=== PATIENT | male | born 1945 | race Caucasian/White ===

== ENCOUNTER 2021-08-30 10:57 | Observation (INO) | payer SELFPAY ==
[2021-08-30] VITALS (7 sets, daily range): BP systolic 140–173; BP diastolic 67–86; PULSE 59–61; RESP 16–19; TEMP 36.3–36.8; O2SAT 87–96; BMI 45.6
--- NOTE | 2021-08-30 11:21 | CT_ITS ---
WS: [id number] CT HEAD TECHNIQUE: Noncontrast CT of the head obtained from the skullbase to the vertex. CLINICAL INFORMATION: fall COMPARISON: None. DLP: 1076.[address] scans at [facility] use at least one of these dose optimization techniques: automated e xposure control; mA and/or kV adjustment per patient size (includes targeted exams where dose is matc hed to clinical indication); or iterative reconstruction. FINDINGS: No evidence of intracranial hemorrhage or mass effect. Ventricular system and basal cisterns are gallego nt. Moderate small vessel changes with moderate parenchymal volume loss. 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 Chronic lacunar infarcts in the thalamus and basal ganglia. Ch ronic infarcts in the cerebellum. Intracranial vascular calcification. No extra-axial fluid collectio ns. No evidence of mass or mass effect. Paranasal sinuses and mastoid air cells are well aerated. .Normal visualized soft tissues. CT/CT head wo con* [id number] IMPRESSION: 1. No evidence of intracranial hemorrhage or mass effect. 2. Moderate small vessel changes with moderate parenchymal volume loss. 3. Chronic lacunar infarcts in the basal ganglia and cerebellum. 4. 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 5. No acute intracranial findings.
--- NOTE | 2021-08-30 11:21 | CT_ITS ---
WS: [id number] CT LUMBAR SPINE TECHNIQUE: Noncontrast CT of the lumbar spine with coronal and sagittal reformatted images. CLINICAL INFORMATION: fall COMPARISON: None. DLP: 4442.[address] scans at [facility] use at least one of these dose optimization techniques: automated e xposure control; mA and/or kV adjustment per patient size (includes targeted exams where dose is matc hed to clinical indication); or iterative reconstruction. FINDINGS: Mild lumbar curve. Moderate to advanced spondylitic changes lumbar spine. No acute compression fractu res. Slight anterolisthesis L4 on L5. No acute fractures. Ankylosis and hypertrophic changes sacroili ac joints. L1-L2: Mild facet arthropathy. Spinal canal and foramen are patent. L2-L3: Disc osteophyte complex with endplate ridging. Slight effacement of ventral thecal sac. Mild l eft and no significant right foraminal narrowing. L3-L4: Mild disc bulging with osteophytic ridging. Mild central canal stenosis. Advanced facet arthro viktoriya. Mild left foraminal narrowing. L4-L5: Grade 1 anterolisthesis L4 on L5. Moderate central canal stenosis. Advanced facet arthropathy. Mild bilateral foraminal narrowing right greater than left. L5-S1: Mild disc osteophytic ridging. Spinal canal is patent. Advanced facet arthropathy. Mild bilate ral foraminal narrowing. Adrenal glands are normal. CT/CT lumbar spine wo con* [id number] IMPRESSION: 1. Mild lumbar curve. Moderate to advanced spondylitic changes lumbar spine. 2. Moderate central canal stenosis L4-5. 3. Advanced facet arthropathy L4-L5 and L5-S1. 4. No acute fractures.
--- NOTE | 2021-08-30 11:21 | XR_ITS ---
WS: [id number] Exam: XR chest 1V portable [id number] Date/Time of Exam: 08/30/2021 11:40 AM Reason For Exam: dyspnea No priors. The lungs are fully expanded and clear. Heart size is top limits normal. The mediastinum is not widen ed. Advanced degenerative changes of both shoulders. Old right clavicle fracture. No pleural effusion s. XR/XR chest 1V portable [id number] IMPRESSION: 1. No acute cardiopulmonary finding.
--- NOTE | 2021-08-30 11:25 | W.ED.GENADLT ---
HPI - General Adult General: Chief complaint: Fall Stated complaint: MULTIPLE FALLS Time Seen by Provider: 08/30/21 11:04 History of Present Illness: HPI narrative: Patient is a 76-year-old male who was recently diagnosed with pneumonia yesterday presents the emergency room after multiple episodes of fall this morning. Patient slipped and fell earlier today and hit his head. Patient cannot remember if he passed out. Patient called EMS and was brought to the emergency room. On arrival, patient complains of headache and lower back pain. Patient says that he has been coughing since yesterday. Patient is unclear what antibiotics he has been started on after was diagnosed with a pneumonia. Patient denies any chest pain, palpitation, abdominal pain, nausea/vomiting, diarrhea, melena or hematochezia. Onset: earlier today Duration:ongoing Location:home Severity:moderate Review of Systems Narrative: Constitutional: No fever, no chills. HEENT: No vision changes CV: No chest pain, no palpitations PULM: +cough, +dyspnea. GI: No abdominal pain, no N/V/D. : No dysuria MSKEL: No muscle pain SKIN: No new rashes, no lesions. NEURO: No headache, no focal weakness. HEME: No visible bruises PSYCH: Normal mood Physical Exam Narrative: EXAM NARRATIVE: Head: Atraumatic Eyes: PERRL, conjunctiva without injection ENT: Mucous membrane moist NECK: Supple, ROM intact LUNGS: +coarse breath sounds b/l CV: RRR ABDOMEN: Soft, no focal TTP. NO guarding rebound, guarding, rigidity. No CVA tenderness to percussion. Neg Mendiola/Neg McBurney's point tenderness, no suprabupic tenderness to palpation. EXTREMITY: Normal ROM, mild 1+ edema in the extremities SKIN: No rash or erythema NEURO: Awake and alert, no focal motor deficits PSYCH: Normal mood and affect Course Vital Signs: Vital signs: Vital Signs Pulse Rate 61 08/30/21 11:10 Respiratory Rate 18 08/30/21 11:10 Blood Pressure 143/86 08/30/21 11:10 Pulse Oximetry 96 08/30/21 11:10 MDM - General Adult MDM Narrative: Medical decision making narrative: 76M presenting after fall with fatigue, genrealized weakness, and cough. O2 sat at 88% on RA improved on 4L to >95% XR chest clear. BNP unremarkable. COVID pending. CT head and CT lumbar spine without any acute pathologies. Will admit for observation of cough, generalized weakness Disposition: admisison Lab Data: Labs: Lab Results 08/30/21 08/30/21 08/30/21 12:28 12:28 12:28 WBC 11.1 10^3/uL H 10 ^3/uL (4.0-10.0) RBC 5.02 10^6/uL 10^6 /uL (4.1-5.3) Hgb 13.9 g/dL g/dL (11.7-16.6) Hct 46.6 % % (42.0-52.0) MCV 92.8 fl fl (80-94) MCH 27.7 pg L pg (28.0-34.0) MCHC 29.8 g/dL L g/dL (30.0-36.0) RDW 14.2 % % (12.1-15.1) Plt Count 217 10^3/cmm 10^3 /cmm (130-400) MPV 9.4 fL fL (7.4-10.4) Neut % (Auto) 76.9 % % Lymph % (Auto) 11.6 % % [place] % (Auto) 9.2 % % Eos % (Auto) 1.0 % % Baso % (Auto) 0.5 % % Neut # (Auto) 8.51 10^3/uL H 10 ^3/uL (1.8-7.7) Lymph # (Auto) 1.3 10^3/uL 10^3/ uL (0.8-4.8) [place] # (Auto) 1.0 10^3/uL H 10^ 3/uL (0.2-0.9) Eos # (Auto) 0.1 10^3/uL 10^3/ uL (0.0-0.8) Baso # (Auto) 0.1 10^3/uL 10^3/ uL (0.0-0.1) Nucleated RBC % (a uto) 0 % % Nucleated RBCs # 0.0 /100WBC /100W BC Sodium 142 mmol/L mmol/L (136-145) Potassium 4.9 mmol/L mmol/L (3.5-5.1) Chloride 101 mmol/L mmol/L (98-107) Carbon Dioxide 29 mmol/L mmol/L (22-29) Anion Gap 16.9 (5-19) BUN 20 mg/dL mg/dL (8-23) Creatinine 1.1 mg/dL mg/dL (0.7-1.2) GFR Calculation Not Reportable Glucose 90 mg/dL mg/dL (65-115) Calculated Osmolal ity 296 mOsm/kg H mOs m/kg (285-295) Calcium 8.5 mg/dL mg/dL (8.5-10.5) Total Bilirubin 0.2 mg/dL mg/dL (0.15-1.2) AST 13 U/L U/L (0-40) ALT 14 U/L U/L (0-41) Alkaline Phosphata se 59 IU/L IU/L (40-130) Troponin T Baselin e 24 ng/L H ng/L (0-15) Troponin T 120 Min [place] Troponin T NT-Pro-B Natriuret Pep Total Protein 6.6 g/dL g/dL (6.6-8.7) Albumin 3.9 g/dL g/dL (3.5-5.2) Globulin 2.7 g/dL g/dL (1.3-4.6) Lipase 51 U/L U/L (13-60) Urine Color Urine Appearance Urine pH Ur Specific Gravit y Urine Protein Urine Glucose (UA) Urine Ketones Urine Blood Urine Nitrate Urine Bilirubin Urine Urobilinogen Ur Leukocyte Gladys ase 08/30/21 08/30/21 08/30/21 12:28 13:45 14:43 WBC RBC Hgb Hct MCV MCH MCHC RDW Plt Count MPV Neut % (Auto) Lymph % (Auto) [place] % (Auto) Eos % (Auto) Baso % (Auto) Neut # (Auto) Lymph # (Auto) [place] # (Auto) Eos # (Auto) Baso # (Auto) Nucleated RBC % (a uto) Nucleated RBCs # Sodium Potassium Chloride Carbon Dioxide Anion Gap BUN Creatinine GFR Calculation Glucose Calculated Osmolal ity Calcium Total Bilirubin AST ALT Alkaline Phosphata se Troponin T Baselin e Troponin T 120 Min [place] 25.73 ng/L H ng/L (0-15) Delta Troponin T 1.73 ABS# ABS# (0-10) NT-Pro-B Natriuret Pep 383 pg/mL pg/mL (0-450) Total Protein Albumin Globulin Lipase Urine Color Yellow (Yellow) Urine Appearance Clear (CLEAR) Urine pH 5 (5-7) Ur Specific Gravit y 1.020 (1.005-1.030) Urine Protein Neg (Negative) Urine Glucose (UA) Norm (Normal) Urine Ketones Negative (Negative) Urine Blood Neg (Negative) Urine Nitrate Negative (Negative) Urine Bilirubin Neg (Negative) Urine Urobilinogen Norm mg/dL mg/dL (Negative) Ur Leukocyte Gladys ase Negative (Negative) Discharge Plan Discharge Patient Disposition: Admitted As Inpatient Clinical Impression: Fall, Generalized weakness, Fatigue, Dyspnea, Cough Condition: Stable Coding Level of Care Code ED [employer] for Dorota Brian
[2021-08-30 12:33] LABS: Basophils # 0.1 10^3/uL (0.0-0.1); Basophils % 0.5 %; Eosinophils # 0.1 10^3/uL (0.0-0.8); Hematocrit 46.6 % (42.0-52.0); Hemoglobin 13.9 g/dL (11.7-16.6); Lymphocytes # 1.3 10^3/uL (0.8-4.8); Lymphocytes % 11.6 %; Mean Corpuscular HGB Conc 29.8 g/dL (30.0-36.0); Mean Corpuscular Hemoglobin 27.7 pg (28.0-34.0); Mean Corpuscular Volume 92.8 fl (80-94); Mean Platelet Volume 9.4 fL (7.4-10.4); Monocytes % 9.2 %; Neutrophils # 8.51 10^3/uL (1.8-7.7); Neutrophils % 76.9 %; Nucleated Red Blood Cells % 0 %; Platelet Count 217 10^3/cmm (130-400); Red Blood Count 5.02 10^6/uL (4.1-5.3); Red Cell Distribution Width 14.2 % (12.1-15.1); White Blood Count 11.1 10^3/uL (4.0-10.0)
[2021-08-30 12:59] LABS: Alanine Aminotransferase 14 U/L (0-41); Albumin Level 3.9 g/dL (3.5-5.2); Alkaline Phosphatase 59 IU/L (40-130); Aspartate Amino Transferase 13 U/L (0-40); Blood Urea Nitrogen 20 mg/dL (8-23); Calcium 8.5 mg/dL (8.5-10.5); Carbon Dioxide 29 mmol/L (22-29); Chloride 101 mmol/L (98-107); Globulin 2.7 g/dL (1.3-4.6); Glucose 90 mg/dL (65-115); Lipase 51 U/L (13-60); Osmolality Calculated 296 mOsm/kg (285-295); Sodium 142 mmol/L (136-145); Total Bilirubin 0.2 mg/dL (0.15-1.2); Total Protein 6.6 g/dL (6.6-8.7)
[2021-08-30 13:02] LABS: Troponin(5th) Baseline 24 ng/L (0-15)
[2021-08-30 13:17] LABS: Anion Gap 16.9 (5-19); Potassium 4.9 mmol/L (3.5-5.1)
--- NOTE | 2021-08-30 13:22 | ECG_ITS ---
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
[2021-08-30 13:55] LABS: Add Urine Microscopic? NO; Charge for UA Resulting for Rev
[2021-08-30 14:12] LABS: Bilirubin Urine Neg (Negative); Blood Urine Neg (Negative); Glucose Urine UA Norm (Normal); Ketones Urine Negative (Negative); Leukocyte Esterase Urine Negative (Negative); Nitrate Urine Negative (Negative); Protein Urine Neg (Negative); Urine Appearance Clear (CLEAR); Urine Color Yellow (Yellow); Urobilinogen Urine Norm (Negative); pH Urine 5 (5-7)
[2021-08-30 14:58] LABS: NT Pro B Type Natriuretic Pept 383 pg/mL (0-450)
[2021-08-30 15:08] LABS: Troponin 5 2HR 25.73 ng/L (0-15); Troponin 5 2HR Delta 1.73 ABS# (0-10)
--- NOTE | 2021-08-30 15:22 | CTR_ITS ---
PROCEDURE INFORMATION: Exam: CTA Chest With Contrast Exam date and time: 08/30/2021 3:22 PM Age: 76 years old Clinical indication: Cough and shortness of breath; Additional info: Dyspnea, cough TECHNIQUE: Imaging protocol: Computed tomographic angiography of the chest with contrast. 3D rendering (Not supervised by radiologist): MIP and/or 3D reconstructed images were created by the technologist. Total images: 995 Radiation optimization: All CT scans at this facility use at least one of these dose optimization techniques: automated exposure control; mA and/or kV adjustment per patient size (includes targeted exams where dose is matched to clinical indication); or iterative reconstruction. Contrast material: OMNI 350; Contrast volume: 79 ml; Contrast route: INTRAVENOUS (IV); COMPARISON: CR XR chest 1V portable [id number] 08/30/2021 11:57 AM RADIATION DOSE METRICS: Total DLP (mGy-cm): 615.51 FINDINGS: Pulmonary arteries: No visible evidence of pulmonary embolism/pulmonary arterial thrombus. Aorta: The thoracic aorta is nonaneurysmal. Mild arterial sclerotic disease. Lungs: No visible active interstitial or alveolar airspace disease. Rare calcified granuloma of antecedent disease. Pleural spaces: No pneumothorax. No pleural effusion. Heart: Cardiac size within normal limits. Mild left ventricular prominence. No visible pericardial effusion. Moderately advanced 3 vessel coronary artery disease. Lymph nodes: No definitive evidence of active mediastinal or hilar lymphadenopathy. Spleen: Numerous calcified splenic granulomas of antecedent disease. Bones/joints: No visible acute osseous abnormality. Advanced osteoarthritis of the shoulders, left more advanced than right. Mild scoliotic curvature. 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 Soft tissues: Unremarkable for age. CT/CT angio chest PE protcl [id number] IMPRESSION: 1. No visible evidence of pulmonary embolism/pulmonary arterial thrombus. 2. Moderately advanced 3 vessel coronary artery disease.
[2021-08-30 15:27] LABS: Adenovirus Not Detected (NOT DETECT); Chlamydia Pneumoniae Not Detected (NOT DETECT); Coronavirus 229E,HKU1,NL63,OC4 Not Detected (NOT DETECT); Human Metapneumovirus Not Detected (NOT DETECT); Human Rhinovirus/Enterovirus Not Detected (NOT DETECT); Influenza A Not Detected (NOT DETECT); Influenza A H1 Not Detected (NOT DETECT); Influenza A H1-2009 Not Detected (NOT DETECT); Influenza A H3 Not Detected (NOT DETECT); Influenza B Not Detected (NOT DETECT); Mycoplasma Pneumoniae Not Detected (NOT DETECT); Parainfluenza Virus Type 1 Not Detected (NOT DETECT); Parainfluenza Virus Type 2 Not Detected (NOT DETECT); Parainfluenza Virus Type 3 Not Detected (NOT DETECT); Parainfluenza Virus Type 4 Not Detected (NOT DETECT); Respiratory Syncytial Virus A Not Detected (NOT DETECT); Respiratory Syncytial Virus B Not Detected (NOT DETECT); SARS-COV-2 Not Detected (NOT DETECT)
[2021-08-30] MEDS: iohexol 350 mg/mL 100 mL Btl IV (15:52)
[2021-08-30] MEDS: sodium chloride 0.9% 500 ML IV (17:05)
--- NOTE | 2021-08-30 17:08 | PM.HP ---
Providers/Chief Complaint Admitting Physician: Ernie Denny MD Chief Complaint: MULTIPLE FALLS History of Present Illness Rolando Lin is a 76 year old male with no significant past medical history came in with chief complaint of, after experiencing fall today, what he describes to me is, likely a mechanical fall, he says that he states that he tripped on a stone and then had a fall. He was recently diagnosed with pneumonia as an outpatient. And was on antibiotics for that.Currently he denies any shortness of breath , chest pain, palpitation, nausea , vomiting , diarrhea. Upon arrival in the ER he was worked up for above mentioned complaint: Pertinent imaging studies: CTA chest: No PE, no infiltrates CT head without contrast: No acute intracranial pathology CT lumbar spine:No acute fractures. Pertinent labs: WBC 11.1, H&H:13.9/46,plt:217, serum sodium: 142 serum potassium 4.9 BUN serum creatinine:20/1.1, troponin trend without significant delta, UA clean, Covid PCR negative Review of Systems Const: Denies: chills, body aches, change in appetite or diaphoresis Card: Denies: palpitations, edema, swelling of feet/ankles, dyspnea on exertion, orthopnea or leg pain with exertion Resp: Denies: dyspnea, productive cough, wheezing or pain on inspiration GI: Denies: abdominal pain, nausea, vomiting, diarrhea or constipation : Denies: flank pain or difficulty urinating Musc: Denies: back pain, extremity pain or extremity swelling Neuro: Denies: headache(s), difficulty walking or confusion Medications/Allergies Home Medications Medication Instructions Recorded Confirmed Last Taken Type albuterol sulfate 2 puff INHALATION QID PRN 08/30/21 08/30/21 Unknown History alprazolam 0.5 - 1 mg PO BID PRN 08/30/21 08/30/21 08/29/21 History aspirin [Aspir-81] 81 mg PO DAILY 08/30/21 08/30/21 08/29/21 History azithromycin See Rx Instructions .ROUTE .COMPLEX 08/30/21 08/30/21 08/28/21 History furosemide 20 - 40 mg PO DAILY PRN 08/30/21 08/30/21 08/29/21 History meloxicam 15 mg PO DAILY 08/30/21 08/30/21 08/29/21 History methylprednisolone See Rx Instructions .ROUTE .COMPLEX 08/30/21 08/30/21 08/29/21 History Allergies Allergy/AdvReac Type Severity Reaction Status Date / Time morphine Allergy ADR-Itching Verified 08/30/21 12:43 Vitals/I&O/Wt Last Vital Signs Pulse 61 08/30/21 11:10 Resp 18 08/30/21 11:10 BP 143/86 08/30/21 11:10 Pulse Ox 92 08/30/21 15:26 Weight last 48 hrs Weight 131.995 kg Physical Exam Const: COMMON NORMALS: patient oriented x3 HENMT: COMMON NORMALS: normocephalic and atraumatic HEAD & SCALP: normocephalic and atraumatic Resp: COMMON NORMALS: clear to auscultation bilaterally EFFORT & INSPECTION: Yes symmetric chest movement AUSCULTATION: clear to auscultation bilaterally Cardio: COMMON NORMALS: regular rate, regular rhythm, S1 normal heart sound present, S2 normal heart sound present, No gallops present (Cardio), No murmurs present (Cardio), No rub (Cardio) and Peripheral pulses 2+ throughout RATE: regular rate RHYTHM: regular rhythm HEART SOUNDS: S1 normal heart sound present and S2 normal heart sound present PERIPHERAL PULSES: Peripheral pulses 2+ throughout GI: COMMON NORMALS: Normal to inspection, nondistended, normoactive bowel sounds present, Soft to palpation, non-tender, No hepatosplenomegaly present and no masses AUSCULTATION: Yes normoactive bowel sounds PALPATION: Yes Soft to palpation and Yes No hepatosplenomegaly present RECTAL EXAM: Yes deferred Extremity: COMMON NORMALS: no clubbing, cyanosis or edema and no pedal edema Neuro: COMMON NORMALS: patient oriented x3 Data : 08/30/21 12:28 08/30/21 12:28 A&P Assessment and plan (1) Fall: Status: Acute (2) Generalized weakness: Status: Acute Additional A&P Information 76 year old male with no significant past medical history came in with chief complaint of, after experiencing fall today, what he describes to me is, likely a mechanical fall, he says that he states that he tripped on a stone and then had a fall. He was recently diagnosed with pneumonia as an outpatient. #Fall: Likely mechanical; Currently imaging studies so far has been negative. Follows 2D echo telemetry Orthostatic vitals Fall precaution CODE STATUS: Full code DVT prophylaxis: On Lovenox Attestations Medical Necessity Statement*: Patient is to the hospital for management and evaluation of fall. Coding Level of Care Code Acute Remotely Operated Vehicle for Dorota Fwd Diagnoses Fall W19.XXXA Generalized weakness R53.1
--- NOTE | 2021-08-30 17:22 | ECG_ITS ---
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: : 1945 Requested By: Charly Ruvalcaba Order Number: [id number] Reading MD: ALLA ESTRADA Measurements Intervals [place] Rate: 59 P: 46 CT: 180 QRS: 43 QRSD: 91 T: 80 QT: 398 QTc: 396 Interpretive Statements SINUS BRADYCARDIA LOW QRS VOLTAGE IN PRECORDIAL LEADS [QRS DEFLECTION < 1.0 mV IN CHEST LEADS] Compared to ECG 08/30/2021 14:40:25 Low QRS voltage now present Supraventricular rhythm no longer present Myocardial infarct finding no longer present Electronically Signed On 08-30-2021 19:04:04 EVP by ALLA ESTRADA [id number] f
--- NOTE | 2021-08-30 19:11 | PC.NURSE ---
Report to Molly ABEBE at this time.
[2021-08-30] MEDS: enoxaparin 40 mg/0.4 mL Syringe SUBCUT (21:02)
[2021-08-30] MEDS: azithromycin 500 MG in sodium chloride 0.9% 250 ML 250 MG IV (21:03)
[2021-08-31] VITALS (7 sets, daily range): BP systolic 150–188; BP diastolic 63–96; PULSE 57–71; RESP 17–48; TEMP 36.6–37.2; O2SAT 90–94; BMI 48.9
--- NOTE | 2021-08-31 05:00 | USCV_ITS ---
Rolando Lin Age: 76 Gender: M : 1945 Exam Date: 08/31/2021 06:19 Ordering Phys: Ernie Denny MD Technologist: Exam [place] [facility] [place]ication: SOB CHEST PAIN BP: 143 / 89 HR: 62 Rhythm: Sinus Technical Quality: Adequate MEASUREMENTS (Male / Female) Normal Values 2D ECHO LVOT Diameter 2.1 cm LA Diameter 4.7 cm M-MODE Aortic Annulus Diameter 4.1 cm LA Ao Ratio MM 1.2 MV E Point Septal Separation 1.2 cm DOPPLER AV Peak Velocity 140.0 cm/s LVOT Peak Velocity 80.0 cm/s AV Area Cont Eq vti 1.8 cm squared AV Area Cont Eq pk 1.9 cm squared MV Area PHT 5.1 cm squared Mitral E to A Ratio 0.8 MV E' Velocity 55.0 cm/s Mitral E to LV E' Septal Ratio 10.6 TR Peak Velocity 145.0 cm/s TR Peak Gradient 8.4 mmHg TV Peak E Velocity 106.0 cm/s Right Atrial Pressure 3.0 mmHg Pulmonary Artery Systolic Pressu 11.4 mmHg FINDINGS Left Ventricle Technically very limited quality echocardiogram because of poor ultrasonic windows. Grossly LV systolic function is normal. However regional wall motion abnormalities cannot be assessed. Grade 1 diastolic dysfunction is seen. Right Ventricle Not well-visualized Right Atrium Grossly normal Left Atrium Grossly normal Mitral Valve Grossly normal Aortic Valve Not well-visualized Tricuspid Valve Not well-visualized Pulmonic Valve Not visualized Pericardium Grossly normal Aorta Not visualized CONCLUSIONS Very limited quality echocardiogram because of poor ultrasonic windows. Grossly LV systolic function is normal. Regional wall motion abnormalities cannot be assessed because of poor ultrasonic windows Grade 1 diastolic dysfunction Valves are not well-visualized. No comparison studies are available. For better assessment of regional wall motion abnormalities, consider limited echocardiogram with contrast. Jackson Brooke MD (Electronically Signed) Final Date: 31 August 2021 11:11 S
[2021-08-31 06:14] LABS: INR 0.89 (0.8-1.2)
[2021-08-31 06:17] LABS: Alanine Aminotransferase 13 U/L (0-41); Albumin Level 3.2 g/dL (3.5-5.2); Alkaline Phosphatase 52 IU/L (40-130); Aspartate Amino Transferase 14 U/L (0-40); Blood Urea Nitrogen 20 mg/dL (8-23); Calcium 8.2 mg/dL (8.5-10.5); Carbon Dioxide 26 mmol/L (22-29); Chloride 100 mmol/L (98-107); Globulin 2.7 g/dL (1.3-4.6); Glucose 96 mg/dL (65-115); Osmolality Calculated 286 mOsm/kg (285-295); Sodium 137 mmol/L (136-145); Thyroid Stimulating Hormone 2.62 uIU/mL (0.27-4.20); Total Bilirubin 0.3 mg/dL (0.15-1.2); Total Protein 5.9 g/dL (6.6-8.7)
[2021-08-31 06:26] LABS: Anion Gap 15.6 (5-19); Potassium 4.6 mmol/L (3.5-5.1)
[2021-08-31] MEDS: FUROsemide 20 mg Tablet 40 MG PO (08:09)
[2021-08-31] MEDS: aspirin 81 mg EC Tablet PO (08:09)
[2021-08-31 08:19] LABS: Basophils # 0.1 10^3/uL (0.0-0.1); Basophils % 0.6 %; Eosinophils # 0.2 10^3/uL (0.0-0.8); Eosinophils % 2.6 %; Hematocrit 44.6 % (42.0-52.0); Hemoglobin 13.9 g/dL (11.7-16.6); Lymphocytes % 11.7 %; Mean Corpuscular HGB Conc 31.2 g/dL (30.0-36.0); Mean Corpuscular Hemoglobin 27.7 pg (28.0-34.0); Mean Corpuscular Volume 88.8 fl (80-94); Mean Platelet Volume 9.3 fL (7.4-10.4); Monocytes # 0.7 10^3/uL (0.2-0.9); Monocytes % 8.5 %; Neutrophils # 6.55 10^3/uL (1.8-7.7); Neutrophils % 76.4 %; Nucleated Red Blood Cells % 0 %; Platelet Count 190 10^3/cmm (130-400); Red Blood Count 5.02 10^6/uL (4.1-5.3); White Blood Count 8.6 10^3/uL (4.0-10.0)
--- NOTE | 2021-08-31 09:50 | PC.NURSE ---
Patient pulled IV out and took heart monitor off. He refuses to put heart monitor back on. Dr. Denny notified.
--- NOTE | 2021-08-31 11:05 | PC.CHAP ---
Pastoral Care Encounter/Spiritual Assessment Type of Contact [] Declined clinical assoc visit [] Patient/Family/Request visit [] Outpatient visit [] Follow-up visit [] Physician referral [] Code/Alert [x] Routine visit [] Staff referral [] Actively dying [] Patient sleeping [] Family support [] [] Out of room [] Palliative care [] [] Receiving care in room [] Pre-surgical visit [] Trauma [] Long length of stay [] ICU visit [] Other: Relational/Emotional Strength [] Patient feels connected with others/family/visitors/staff [] Distress [] Loneliness/isolation [] Abandonment Spirituality of Patient [] Person of Karen [] Attends Anglican of their Karen [] Believes in Prayer [] Reads Bible or Sikhism materials [] There are Spiritual issues to be addressed Computer Hardware Designer Interventions [] Prayer [x] Active listening [x] Non-anxious presence [x] Spiritual/emotional support [] Crisis/trauma care [] Spiritual counseling [] Bereavement support [] Provided bereavement packet [] Provided Bible/devotional materials [] Provided toy/stuffed animal, coloring book to patient or family member [] Provided Communion [] Anointing/[place] [] Salvation [] Completed spiritual assessment [] Other: Impact on Illness or Injury [] Angry [] Fearful [] Anxious [] Often cries [] Exhaustion [] Unable to work [] Unable to attend alevism [] Unable to walk/stand [] Unable to read [] Unable to drive [] Unable to eat/drink [] Unable to sleep [] Unable to be with family [] Patient intubated [] Other: Summary Upon entering the room, clinical assoc found patient fully clothed and sitting in a chair. Asked patient if he was being released and he responded he hoped so. He immediately handed the clinical assoc his cell phone and asked if I could locate Ruperto in the contacts. Computer Hardware Designer located Ruperto and returned the phone to pt where he placed a call. Computer Hardware Designer excused self from you. Time spent with patient 5m
--- NOTE | 2021-08-31 13:33 | USCV_ITS ---
Delia Rolando Age: 76 Gender: M : 1945 Exam Date: 08/31/2021 16:22 Ordering Phys: Ernie Denny MD Technologist: Sawyer Jo Exam Location: [facility] – [place] Indication: UNWITNESSED FALL Risk Factors: Previous Vascular Surgery: Right Brachial BP: / Left Brachial BP: / Right Left Velocity (cm/s) Spectral Plaque Velocity (cm/s) Spectral Plaque Syst/Diast Broadening Syst/Diast Broadening 100.30/16.50 Prox CCA 131.50/ 9.20 91.50/ 7.70 Mid CCA 67.60 / 9.30 63.10/ 7.90 Distal CCA 57.70 / 6.90 46.50/ 11.20 Prox ICA 46.60 / 7.30 48.10/ 11.70 Mid ICA 40.80 / 7.40 67.80/ 9.10 Distal ICA 41.50 / 6.30 129.00 ECA 109.50 0.53 ICA/CCA 0.60 Tri Subclavian Tri 153.8 117.9 0 0 CONCLUSIONS Right ICA stenosis <50%. Left ICA stenosis <50%. Vertebral arteries not demonstrated due to positioning upright in chair for exam Onesimo Cm MD (Electronically Signed) Final Date: 02 September 2021 10:45 S
[2021-08-31] MEDS: enoxaparin 40 mg/0.4 mL Syringe SUBCUT (17:45)
--- NOTE | 2021-08-31 17:48 | PC.NURSE ---
Patient refused to have court recording monitor on
--- NOTE | 2021-08-31 19:58 | PM.PN ---
Subjective Subjective: Interval history: Patient was seen and examined this morning, overall he is doing better, no fall during the hospital stay. Medications: Reviewed: Yes Vitals/I&O/Wt Last Vital Signs Temp 98.9 F 08/31/21 15:41 Pulse 57 L 08/31/21 19:43 Resp 18 08/31/21 19:43 BP 169/86 08/31/21 15:41 Pulse Ox 93 08/31/21 19:43 Weight last 48 hrs Weight 141.549 kg Weight 131.995 kg Physical Exam Const: COMMON NORMALS: patient oriented x3 HENMT: COMMON NORMALS: normocephalic and atraumatic HEAD & SCALP: normocephalic and atraumatic Resp: COMMON NORMALS: clear to auscultation bilaterally EFFORT & INSPECTION: Yes symmetric chest movement AUSCULTATION: clear to auscultation bilaterally Cardio: COMMON NORMALS: regular rate, regular rhythm, S1 normal heart sound present, S2 normal heart sound present, No gallops present (Cardio), No murmurs present (Cardio), No rub (Cardio) and Peripheral pulses 2+ throughout RATE: regular rate RHYTHM: regular rhythm HEART SOUNDS: S1 normal heart sound present and S2 normal heart sound present PERIPHERAL PULSES: Peripheral pulses 2+ throughout GI: COMMON NORMALS: Normal to inspection, nondistended, normoactive bowel sounds present, Soft to palpation, non-tender, No hepatosplenomegaly present and no masses AUSCULTATION: Yes normoactive bowel sounds PALPATION: Yes Soft to palpation and Yes No hepatosplenomegaly present RECTAL EXAM: Yes deferred Extremity: COMMON NORMALS: no clubbing, cyanosis or edema and no pedal edema Neuro: COMMON NORMALS: patient oriented x3 Data : 08/31/21 08:09 08/31/21 05:41 A&P Assessment and plan (1) Fall: Status: Acute (2) Generalized weakness: Status: Acute (3) Uncontrolled hypertension: Status: Acute (4) Dyspnea: Status: Acute Additional A&P Information 76 year old male with no significant past medical history came in with chief complaint of, after experiencing fall today, what he describes to me is, likely a mechanical fall, he says that he states that he tripped on a stone and then had a fall. He was recently diagnosed with pneumonia as an outpatient. #Fall: Likely mechanical; Currently imaging studies so far has been negative. 2D echo: Poor quality study, normal LVEF, cannot comment on RWMA, poor valvular study. Likely repeat echo with contrast. Follow carotid Doppler: telemetry Orthostatic vitals Fall precaution #Acute bronchitis: Complaining of cough, currently requiring minimal supplemental oxygen. Continue azithromycin Albuterol inhaler as needed Sveta Juarez #Uncontrolled hypertension: Started on hydralazine 25 mg p.o. daily CODE STATUS: Full code DVT prophylaxis: On Lovenox Attestations Medical Necessity Statement*: Patient needs to be in hospital for management of recurrent fall. Coding Level of Care Code Acute Auto Clutch Specialist for Chg Fwd Diagnoses Fall W19.XXXA Generalized weakness R53.1 Uncontrolled hypertension I10 Dyspnea R06.00
[2021-08-31] MEDS: azithromycin 500 MG in sodium chloride 0.9% 250 ML 250 MG IV (20:30)
[2021-09-01] VITALS: BP 144/60; PULSE 57; RESP 17; TEMP 36.7; O2SAT 87
--- NOTE | 2021-09-01 00:06 | PC.NURSE ---
i reported low pulse 57 and low o2 87 to nurse and explain to patient why he needs to wear his oxygen and he still refused it
[2021-09-01 04:00] VITALS: BP 175/99; PULSE 59; RESP 17; TEMP 36.7; O2SAT 87
--- NOTE | 2021-09-01 04:39 | PC.NURSE ---
Notified by Mimi miguel multiple time pt in 73 has refused wearing his oxygen -- he has been counseled on the importance of this and prolonged hypoxia but still refuses. Pt should be wearing 2lNC. He is saturating between 85-90% depending on position in bed.
--- NOTE | 2021-09-01 04:50 | PC.NURSE ---
i reported low pulse 50 and low o2 87 to nurse also tried to educate the patent on why they should wear there oxygen they still told me they didnt want it
[2021-09-01 05:38] LABS: Basophils % 0.4 %; Eosinophils # 0.3 10^3/uL (0.0-0.8); Eosinophils % 3.5 %; Hematocrit 45.3 % (42.0-52.0); Hemoglobin 14.4 g/dL (11.7-16.6); Lymphocytes % 12.7 %; Mean Corpuscular HGB Conc 31.8 g/dL (30.0-36.0); Mean Corpuscular Hemoglobin 28.2 pg (28.0-34.0); Mean Corpuscular Volume 88.8 fl (80-94); Mean Platelet Volume 9.5 fL (7.4-10.4); Monocytes # 0.7 10^3/uL (0.2-0.9); Monocytes % 8.4 %; Neutrophils # 6.05 10^3/uL (1.8-7.7); Neutrophils % 74.6 %; Nucleated Red Blood Cells % 0 %; Platelet Count 158 10^3/cmm (130-400); Red Cell Distribution Width 13.8 % (12.1-15.1); White Blood Count 8.1 10^3/uL (4.0-10.0)
[2021-09-01 06:03] LABS: Alanine Aminotransferase 13 U/L (0-41); Albumin Level 3.5 g/dL (3.5-5.2); Alkaline Phosphatase 57 IU/L (40-130); Anion Gap 16.3 (5-19); Aspartate Amino Transferase 15 U/L (0-40); Blood Urea Nitrogen 19 mg/dL (8-23); Calcium 8.5 mg/dL (8.5-10.5); Carbon Dioxide 29 mmol/L (22-29); Chloride 95 mmol/L (98-107); Glucose 111 mg/dL (65-115); Osmolality Calculated 285 mOsm/kg (285-295); Potassium 4.3 mmol/L (3.5-5.1); Sodium 136 mmol/L (136-145); Total Bilirubin 0.5 mg/dL (0.15-1.2); Total Protein 6.5 g/dL (6.6-8.7)
[2021-09-01 07:00] VITALS: BP 166/92; BP 179/94; BP 197/79; PULSE 57; PULSE 59; PULSE 62
[2021-09-01 07:42] VITALS: BP 197/79; PULSE 59; RESP 18; TEMP 36.5; O2SAT 91
[2021-09-01] MEDS: hyDRALAzine 25 mg Tablet PO (08:45)
[2021-09-01] MEDS: aspirin 81 mg EC Tablet PO (08:45)
[2021-09-01] MEDS: FUROsemide 20 mg Tablet 40 MG PO (08:46)
--- NOTE | 2021-09-01 10:24 | P.DS_ITS ---
Discharge Providers Date of Admission: 08/30/21 15:23 Date of Discharge: September 01, 2021 Attending Provider at Admission: Ernie Denny MD Attending Provider at Discharge: Ernie Denny MD Diagnoses at Discharge Discharge Diagnosis (1) Fall: (2) Generalized weakness: (3) Uncontrolled hypertension: Status: Acute (4) Dyspnea: Reason for Visit Reason for Visit: MULTIPLE FALLS Hospital Course Hospital Course Rolando Lin is a 76 year old male with no significant past medical history came in with chief complaint of, after experiencing fall today, what he describes to me is, likely a mechanical fall, he says that he states that he tripped on a stone and then had a fall. He was recently diagnosed with pneumonia as an outpatient. And was on antibiotics for that.Currently he denies any shortness of breath , chest pain, palpitation, nausea vomiting , diarrhea. Upon arrival in the ER he was worked up for above mentioned complaint: Pertinent imaging studies: CTA chest: No PE, no infiltrates , CT head without contrast: No acute intracranial pathology, CT lumbar spine:No acute fractures. He was admitted for the management of recurrent fall likely mechanical: 2D echo done during the hospital stay: Poor quality study, normal LVEF, cannot comment on RWMA, poor valvular study. Likely repeat echo with contrast. Patient was not very much compliant with telemetry monitoring, b/l carotid Doppler was done no flow-limiting stenosis was noted. He was also managed for cough likely secondary to acute bronchitis, he was kept on antibiotics, to which he responded well, for most part patient was saturating well on room air, he was not very compliant with oxygen through nasal cannula. Uncontrolled hypertension: He was discharged on amlodipine 10 mg p.o. daily. He also had chronic bilateral lower extremity edema for which she was continued on his home Lasix. Patient did not had any similar episode during the hospital stay, he denied any chest pain shortness of breath palpitation dizziness headache. He responded well to above medical management and is being discharged in stable condition to a friend's home, planning to return to [place] to her daughter's place. Physical Exam Const: COMMON NORMALS: patient oriented x3 HENMT: COMMON NORMALS: normocephalic and atraumatic HEAD & SCALP: normocephalic and atraumatic Resp: COMMON NORMALS: clear to auscultation bilaterally EFFORT & INSPECTION: Yes symmetric chest movement AUSCULTATION: clear to auscultation bilaterally Cardio: COMMON NORMALS: regular rate, regular rhythm, S1 normal heart sound present, S2 normal heart sound present, No gallops present (Cardio), No murmurs present (Cardio), No rub (Cardio) and Peripheral pulses 2+ throughout RATE: regular rate RHYTHM: regular rhythm HEART SOUNDS: S1 normal heart sound present and S2 normal heart sound present PERIPHERAL PULSES: Peripheral pulses 2+ throughout GI: COMMON NORMALS: Normal to inspection, nondistended, normoactive bowel sounds present, Soft to palpation, non-tender, No hepatosplenomegaly present and no masses AUSCULTATION: Yes normoactive bowel sounds PALPATION: Yes Soft to palpation and Yes No hepatosplenomegaly present RECTAL EXAM: Yes deferred Extremity: COMMON NORMALS: no clubbing, cyanosis or edema and no pedal edema Neuro: COMMON NORMALS: patient oriented x3 Discharge Data Data Completed and Pending: Completed Studies During Hospitalization Category Date Time Status CT angio chest PE protcl [id number] Urge nt Cat Scan 08/30/21 15:[address] head wo con* 7 [id number] Urgent Cat Scan 08/30/21 11:[address] lumbar spine w o con* [id number] Urgen t Cat Scan 08/30/21 11:21 Completed XR chest 1V [place] ble [id number] Urgent Exams 08/30/21 11:21 Completed CV. echo complete * [id number] Routine Ultrasound 08/31/21 05:00 Completed Pending at discharge Category Date Time Status Complete Blood Co unt w/Auto AM LABS Lab 09/02/21 04:00 Ordered Comprehensive Met abolic Panel AM LA BS Lab 09/02/21 04:00 Ordered CV carotid duplex BI* [id number] Routine Ultrasound 08/31/21 13:33 Taken Labs from last 24 hours 09/01/21 09/01/21 05:10 05:10 WBC 8.1 RBC 5.10 Hgb 14.4 Hct 45.3 MCV 88.8 MCH 28.2 MCHC 31.8 RDW 13.8 Plt Count 158 MPV 9.5 Neut % (Auto) 74.6 Lymph % (Auto) 12.7 [place] % (Auto) 8.4 Eos % (Auto) 3.5 Baso % (Auto) 0.4 Neut # (Auto) 6.05 Lymph # (Auto) 1.0 [place] # (Auto) 0.7 Eos # (Auto) 0.3 Baso # (Auto) 0.0 Nucleated RBC % (a uto) 0 Nucleated RBCs # 0.0 Sodium 136 Potassium 4.3 Chloride 95 L Carbon Dioxide 29 Anion Gap 16.3 BUN 19 Creatinine 0.9 GFR Calculation Not Reportable Glucose 111 Calculated Osmolal ity 285 Calcium 8.5 Total Bilirubin 0.5 AST 15 ALT 13 Alkaline Phosphata se 57 Total Protein 6.5 L Albumin 3.5 Globulin 3.0 Vitals: Last Vital Signs Temp 97.7 F 09/01/21 07:42 Pulse 59 L 09/01/21 07:42 Resp 18 09/01/21 07:42 BP 197/79 09/01/21 07:42 Pulse Ox 91 09/01/21 07:42 Discharge Plan Discharge Patient Disposition: Home Condition: Stable Prescriptions: New amlodipine 10 mg tablet 10 mg PO DAILY Qty: 30 RF: 1 Continued alprazolam 1 mg tablet 0.5 - 1 mg PO BID PRN (Reason: Anxiety) RF: 0 meloxicam 15 mg tablet 15 mg PO DAILY RF: 0 aspirin 81 mg Tablet,Delayed Release (Dr/Ec) 81 mg PO DAILY RF: 0 furosemide 20 mg tablet 20 - 40 mg PO DAILY PRN (Reason: swelling) RF: 0 albuterol sulfate 90 mcg/actuation HFA aerosol inhaler 2 puff INHALATION QID PRN (Reason: Shortness Of Breath) RF: 0 Discontinued azithromycin 250 mg tablet See Rx Instructions .ROUTE .COMPLEX RF: 0 methylprednisolone 4 mg tablets,dose pack See Rx Instructions .ROUTE .COMPLEX RF: 0 Discharge Orders: Discharge Order (Routine); Ordered 09/01/21 Ordered By: Ernie Denny Referrals: Cynthia San [facility] [Referring] - (PLEASE CALL FOR APPOINTMENT WITH FAMILY CLINIC) Discharge Diet: Regular Discharge Activity: Resume usual activity Patient Instructions: Amlodipine (By mouth), Hypertension, Opioid Safety Discharge Attestations Time Spent in Discharge Care*: less than 30 min Specific Discharge Activities: educating patient, educating and/or supporting family/caregiver, discussing with pcp/other providers, discussing with employment evaluator/case manager/social workers/dc planners, documenting/other paperwork and evaluating patient/reviewing data Status at Discharge: Cognitive status at discharge: cognitively intact , Behavioral status at discharge: cooperative , Functional status at discharge: independent ambulation Overall status at discharge: patient is back to baseline Quality Metrics Clinical Quality Measures During this hospital stay, did patient experience: None Coding Level of Care Code Acute Chg FW DC note Exam Detailed Diagnoses Fall W19.XXXA Generalized weakness R53.1 Uncontrolled hypertension I10 Dyspnea R06.00
[2021-09-01 10:48] VITALS: PULSE 54; RESP 18; O2SAT 90
== END 2021-09-01 12:10 | disposition home or self-care (01) ==
LOC: ER 16:10 → MEDSURG 17:02
PROVIDERS: Admitting Provider Internal Medicine; Emergency Provider Emergency Medicine; Visit Provider Internal Medicine
DX: R53.1 Weakness (principal); Z91.81 History of falling; I10 Essential (primary) hypertension; R06.00 Dyspnea, unspecified; Z79.82 Long term (current) use of aspirin; J20.9 Acute bronchitis, unspecified
CPT/HCPCS: 36415; 70450; 71045; 71275; 72131; 80053; 81003; 83690; 83735; 83880; 84443; 84484; 85025; 85610; 87635; 93005; 93306; 93880; 96365; 96372; 99285; G0378; J0456; J1650; J7040; J7050; Q9967